=== PATIENT | female | born 1990 | race Caucasian/White ===

== ENCOUNTER → 2017-05-13 | Outpatient (CLI) | payer OTHER ==
[~2017-05-13] MED LIST: PRENTAB26 PO
[2017-05-13 16:30] LABS: URINE APPEARANCE CLEAR (CLEAR); URINE BILIRUBIN NEG (NEG); URINE COLOR YELLOW; URINE EPITHELIAL CELL AUTO >30 /lpf (0-5); URINE NITRITE NEG (NEG); URINE SPECIFIC GRAVITY 1.015 (1.000-1.030); UROBILINOGEN NEG (NEG)
[2017-05-13 16:31] LABS: MANUAL MICROSCOPIC REQUIRED? NO; REVIEW REQ? NO
== END | disposition home or self-care (01) ==
LOC: C.LABSPEC 15:49
PROVIDERS: ATTEND Nurse Practitioner Family
DX: Z34.81 Encounter for supervision of other normal pregnancy, first trimester (principal); Z3A.00 Weeks of gestation of pregnancy not specified

== ENCOUNTER → 2017-05-15 | Outpatient (CLI) | payer OTHER ==
[2017-05-15 14:42] LABS: BASO % 0.4 %; BASO ABS # 0.04 K/uL (0-0.2); COMPLETE YES; EOS % 1.1 %; HEMATOCRIT 39.6 % (37-47); IG% 0.2 %; LYMPH % 15.2 %; LYMPH ABS # 1.49 K/uL (1.2-3.4); MEAN CELL VOLUME 95.2 fL (80-100); MEAN CORPUSCULAR HEMOGLOBIN 32.2 pg (25-34); MEAN CORPUSCULAR HGB CONC 33.8 g/dl (32-36); MEAN PLATELET VOLUME 9.5 fL (7.4-10.4); MONO % 8.6 %; NEUT % 74.5 %; PLATELET COUNT 289 K/uL (130-400); RED BLOOD COUNT 4.16 M/uL (4.2-5.4); WHITE BLOOD COUNT 9.79 K/uL (4.8-10.8)
[2017-05-19 10:06] LABS: CHLAMYDIA TRACH RNA*** NOT DETECTED (NOT DETECTED); GC (NEIS GONORRHOEAE)RNA** NOT DETECTED (NOT DETECTED)
== END | disposition home or self-care (01) ==
LOC: C.LAB1850 12:46
PROVIDERS: ATTEND Obstetrics & Gynecology
DX: Z34.81 Encounter for supervision of other normal pregnancy, first trimester (principal); Z3A.00 Weeks of gestation of pregnancy not specified

== ENCOUNTER → 2017-05-15 | Outpatient (CLI) | payer OTHER | END | disposition home or self-care (01) | LOC: C.PAPS 16:46 | PROVIDERS: ATTEND Obstetrics & Gynecology | DX: Z34.81 Encounter for supervision of other normal pregnancy, first trimester (principal) ==

== ENCOUNTER → 2017-10-06 | Outpatient (CLI) | payer OTHER | END | disposition home or self-care (01) | LOC: C.LABSPEC 16:13 | PROVIDERS: ATTEND Obstetrics & Gynecology | DX: Z34.83 Encounter for supervision of other normal pregnancy, third trimester (principal) ==

== ENCOUNTER → 2017-10-06 | Outpatient (CLI) | payer OTHER ==
[2017-10-06 15:37] LABS: HEMATOCRIT 37.3 % (37-47); HEMOGLOBIN 12.5 g/dL (12.0-16.0)
== END | disposition home or self-care (01) ==
LOC: C.LAB1850 14:19
PROVIDERS: ATTEND Obstetrics & Gynecology
DX: Z34.83 Encounter for supervision of other normal pregnancy, third trimester (principal)

== ENCOUNTER 2018-01-04 15:42 | Inpatient (IN) | payer OTHER ==
[~2018-01-04] VITALS: Ht 177.8 cm; Wt 91.7 kg
[2018-01-04 16:00] VITALS: Ht 177.8 cm; Wt 91.7 kg
[2018-01-04] MEDS ORDERED: LACTATED RINGER'S 1000ML 1,000 ML IV PRN (16:25)
[2018-01-04] MEDS ORDERED: PENICILLIN G POTASSIUM IV 6 MU in DEXTROSE 5% 250ML 250 ML IV ONE (16:45)
[2018-01-04 16:49] LABS: HEMATOCRIT 36.4 % (37-47); HEMOGLOBIN 12.4 g/dL (12.0-16.0); MEAN CELL VOLUME 95.8 fL (80-100); MEAN CORPUSCULAR HEMOGLOBIN 32.6 pg (25-34); MEAN CORPUSCULAR HGB CONC 34.1 g/dl (32-36); PLATELET COUNT 204 K/uL (130-400); RED CELL DISTRIBUTION WIDTH CV 13.7 % (11.5-14.5); RED CELL DISTRIBUTION WIDTH SD 47.1 fL (36.4-46.3); WHITE BLOOD COUNT 11.16 K/uL (4.8-10.8)
[2018-01-04] MEDS: LACTATED RINGER'S 1000ML 1,000 ML IV SCH ×2 (16:56→23:25)
[2018-01-04] MEDS ORDERED: BUPIVACAINE 0.25% 30 ML VIAL ONE (20:43)
[2018-01-04] MEDS ORDERED: EpHEDrine SULFATE INJ 50 MG/ML AMP ONE (20:43)
[2018-01-04] MEDS ORDERED: FENTANYL 2MCG/ML ROPIV 1.25MG/ML 100ML BAG ONE (20:44)
[2018-01-04] MEDS ORDERED: FENTANYL CITRATE INJ 50 MCG/1 ML 2 ML VIAL ONE (20:44)
[2018-01-04] MEDS: PENICILLIN G POTASSIUM IV 3 MU in DEXTROSE 5% 100ML 100 ML IV PRN (20:56)
[2018-01-04] MEDS ORDERED: LACTATED RINGER'S 1000ML 500 ML IV PRN ×2 (21:46→22:01)
[2018-01-04] MEDS ORDERED: NALOXONE HCL INJ 1 MG in SODIUM CHLORIDE 0.9% 1000ML 1,000 ML IV PRN (21:46)
[2018-01-04] MEDS ORDERED: EpHEDrine SULFATE INJ 50 MG/ML AMP IV PRN (22:00)
[2018-01-04] MEDS ORDERED: ONDANSETRON INJ 2 MG/ML 2 ML VIAL IV PRN (22:00)
[2018-01-04] MEDS ORDERED: NALOXONE HCL INJ 0.4 MG/1 ML VIAL/CARP IV PRN (22:00)
[2018-01-04] MEDS ORDERED: FENTANYL 2MCG/ML ROPIV 1.25MG/ML 100ML BAG EPI PRN (22:00)
[2018-01-04] MEDS ORDERED: NALBUPHINE HCL INJ 10 MG/ML AMP IV PRN (22:00)
[2018-01-04] MEDS ORDERED: DiphenhydrAMINE HCL 50 MG/ML VIAL IV PRN (22:00)
[2018-01-04] MEDS ORDERED: OXYTOCIN 30 UNITS/500ML NSS IV PRN (22:15)
[2018-01-05] VITALS (7 sets, daily range): BP systolic 105–129; BP diastolic 68–86; PULSE 71–104; TEMP 36.4–36.9; O2SAT 98–99
[2018-01-05] MEDS: PENICILLIN G POTASSIUM IV 3 MU in DEXTROSE 5% 100ML 100 ML IV PRN (00:46)
[2018-01-05] MEDS ORDERED: DIPHTHERIA/TETANUS/PERTUSSIS 0.5 ML SYR/VIAL IM. ONE (01:30)
[2018-01-05] MEDS ORDERED: OXYTOCIN 30 UNITS/500ML NSS IV PRN (01:30)
[2018-01-05] MEDS ORDERED: ACETAMINOPHEN 325 MG TAB PO PRN (01:30)
[2018-01-05] MEDS ORDERED: HYDROCORTISONE ACETATE 25 MG SUPP PR PRN (01:30)
[2018-01-05] MEDS ORDERED: LANOLIN OINT EXT PRN (01:30)
[2018-01-05] MEDS ORDERED: BENZOCAINE 20% AER SPR 82.5 GM CAN EXT PRN (01:30)
[2018-01-05] MEDS ORDERED: SUPERCREAM 0.870 % 15GM JAR EXT PRN (01:30)
[2018-01-05] MEDS ORDERED: OXYCODONE/ACETAMINOPHEN 5-325 TAB PO PRN (01:30)
--- NOTE | 2018-01-05 01:54 | DELIVERY SUMMARY ---
DATE OF OPERATION: 01/05/2018 PREOPERATIVE DIAGNOSES: 1. Intrauterine at 41+ weeks. 2. Early active labor. 3. GBS positive status. POSTOPERATIVE DIAGNOSES: 1. Intrauterine at 41+ weeks. 2. Early active labor. 3. GBS positive status. PROCEDURES: 1. GBS prophylaxis. 2. Epidural. 3. Amniotomy. 4. Pitocin augmentation. 5. Normal spontaneous vaginal delivery. 6. Bilateral periurethral lacerations with repair. SURGEON: Amena Hope MD ANESTHESIA: Epidural. ESTIMATED BLOOD LOSS: 350 mL PROCEDURE IN DETAIL: The patient presented to labor and delivery at 5+ cm dilated. She was admitted. She underwent penicillin for prophylaxis. After receiving epidural and her second dose of penicillin, she was ruptured at 5 cm, 75% and Pitocin augmentation was initiated. She progressed to complete-complete and +1 station, pushed over approximately 3 contractions to deliver a viable female in direct occiput posterior presentation. A loose nuchal cord was reduced and the rest of the infant was then delivered without difficulty. The nose and mouth were bulb suctioned. The was placed on the maternal abdomen for drying and attention. At 1 minute of life, the cord was clamped and cut. Of note, there was a true knot in the cord. Whether this was there originally created by the reduction of the nuchal cord was unsure. Placenta delivered spontaneously intact with a 3-vessel cord. Cervix, sulci, and rectum as well as the perineum was examined and found to be intact. Bilateral periurethral lacerations were repaired with 4-0 Vicryl in interrupted sutures in a normal standard fashion. Hemostasis obtained with dilute Pitocin and fundal massage. Estimated blood loss 350 mL. Apgars 8 and 10. Mother and baby doing well at the end of the delivery. I attest to the content of the Intraoperative Record and any orders documented therein. Any exception s are noted below.
--- NOTE | 2018-01-05 06:38 | Discharge Instructions ---
Discharge Instructions Date of Service January 05, 2018. Admission Reason for Admission: Check Labor Discharge Discharge Diagnosis / Problem: Vaginal Delivery Discharge Goals Goal(s): Routine recovery after delivery Medications Continue Dispensed Medications: supercream, dermaplast, tucks, lansinoh Activity Recommendations Activity Limitations: per Instructions/Follow-up section . Instructions / Follow-Up Instructions / Follow-Up ACTIVITY RECOMMENDATIONS: * Gradual return to full activity over the next 2-3 weeks. * No lifting - nothing heavier than baby over the next 2-3 weeks. * Do not engage in vigorous exercise, sexual activity or sports until cleared by your physician. * Do not drive or operate any motorized equipment until cleared by your physician. * You may shower/bathe daily. MEDICATIONS: For discomfort or pain, you may use Acetaminophen (Tylenol), Ibuprofen (Advil), or Naproxen (Aleve) following the package directions. For constipation you may use Colace following the package directions. BREAST CARE: If you are not breast feeding: * Wear a supportive bra 24 hours a day for one to two weeks. * Avoid stimulating your breasts and nipples as much as possible during the first few weeks after delivery. * When taking a shower, have the warm water hit your back, not breasts. * When your breasts feel full, apply ice packs. Usually three to four times a day helps ease the discomfort. * Take a mild pain medication (Tylenol / Motrin) when you are uncomfortable. If breast feeding: * Use breast milk to lubricate nipples. Lansinoh cream may be used for sore nipples. You do not need to remove cream prior to breast feeding. If using a different brand of cream, check the label for directions regarding removal of cream prior to nursing. * Wear a supportive bra. * If having problems with breasts or breast feeding, call a application support consultant or your health care provider. EPISIOTOMY CARE: After delivery, if you have an episiotomy (stitches), the following steps will ease discomfort and aid healing. * For the first 24 hours after delivery, place ice packs next to your episiotomy to help reduce swelling. * After the first 24 hour-period, sitz baths, either portable or in the tub, are suggested. A shower with a shower arm sprayed over the episiotomy may be comforting. * Coral care should be done after each voiding and bowel movement. Squirt warm water from a plastic bottle over the perineum (region of the body between the anus and urinary opening) and pat dry. * Use Dermoplast to ease discomfort. Shake container. [place] directly over the episiotomy. Place a Tucks on a clean sanitary pad next to your episiotomy. SPECIAL CARE INSTRUCTIONS: When you are discharged from the hospital, it is important for you to follow the instructions listed below: * During the first week at home, you should be able to care for yourself and your baby. In addition, the usual light household activities are encouraged. * Limit your activities to the way you feel. Do not try to clean the house or move furniture. Be sensible. * If you actively engage in sports and have done so up until the time of your delivery, you may resume these activities as soon as you feel able. This may take up to one month or even longer. Use good judgment. * Continue to take your vitamins for at least six weeks after the of your baby. * Your diet need not be limited unless you were on a special diet before your delivery. Breast-feeding mothers need around 2500 calories per day and at least 64-80 ounces of fluid per day (8 to 10 glasses). * You should eat foods from the four major food groups. Crash diets or fad diets are to be avoided. Eating lean meats, fresh fruits and vegetables, low-fat dairy products, high fiber foods and a regular exercise program, will help you get back to your pre- weight without putting your health at risk. * Constipation is sometimes a problem after delivery. Take a mild laxative as needed. If breast feeding, Milk of Magnesia is acceptable to use. You may use a suppository or Fleets enema if no episiotomy. * A daily shower or tub bath is suggested. Be sure to thoroughly and gently dry the perineum. * A bloody vaginal discharge will usually continue until around four weeks post . A small amount of bleeding may continue for as long as six weeks. Vaginal discharge changes from the bright red bleeding after delivery to pink then brownish and finally yellowish-pink before becoming white and disappearing. * Bleeding may increase with activity. Your first period may come in 4-8 weeks. If you are breast feeding, your period may be delayed even longer. * Lyons Switch (sex) can begin whenever both you and your partner feel comfortable and do not have any form of genital infection. It is recommended that you wait at least six weeks for internal and external healing to occur. If you have questions, please talk to your health care practitioner. A condom should be used to prevent infection and . * Foreplay, gentle intercourse and lubrication is very important the first several times to prevent pain. A water-based lubricant such as K-Y jelly or Astroglide may be used. * If you have RH negative blood and your baby is RH positive, you will receive RHOGAM by injection prior to discharge. The nurse will give you a card to keep with you that has the date and place that you received RHOGAM after delivery. * During your care, you had a Rubella screen done to check for the presence of rubella antibodies in your blood. If your test was negative, you will receive a Rubella vaccine prior to discharge. This vaccine may cause a fever, soreness at the injection site and flu-like symptoms. If these symptoms persist, notify your health care practitioner. is not advised for one month after a Rubella vaccine. * Verbalizes understanding of car seat law as reviewed with patient nursing. * Car Seat hand-out given and reviewed with patient by nursing. * Shaken baby information reviewed with patient by nursing. Call you doctor if: * Heavy bleeding (saturating several pads an hour) or passing clots the size of your fist. * A fever >101 degrees F (38.3 degrees C) on two occasions four hours apart and /or chills. * Unusual pain in the pelvic or vaginal areas. * "Baby Blues" lasting longer than two weeks. If you have any questions or concerns, call your health care practitioner at . FOLLOW UP VISIT: * Please call the office at to schedule a 6 week examination. It is important you keep this appointment. It is important for you to make arrangements for either yearly or twice yearly check-ups thereafter. Current Hospital Diet Patient's current hospital diet: Regular OB Diet Discharge Diet Recommended Diet: Regular Diet Pending Studies Studies pending at discharge: no Medical Emergencies . Who to Call and When: Medical Emergencies: If at any time you feel your situation is an emergency, please call 911 immediately. . Non-Emergent Contact Non-Emergency issues call your: Primary Care Provider . . "Provider Documentation" section prepared by David Minaya. .
[2018-01-05] MEDS: IBUPROFEN 600 MG TAB PO PRN ×4 (07:50→20:02)
[2018-01-05] MEDS: DOCUSATE SODIUM 100 MG CAP PO SCH ×2 (07:51→20:02)
[2018-01-05] MEDS ORDERED: PRENATAL VITAMIN TAB PO SCH (08:00)
--- NOTE | 2018-01-05 08:38 | Anesthesia Procedure Note ---
Anesthesia Epidural Removal Nt Date & Time January 05, 2018 at 08:37 Vital Signs Pain Intensity: 4.0 Vital Signs Past 12 Hours Date Time Temp Pulse Resp B/P (MAP) Pulse Ox O2 Delivery O2 Flow Rate FiO2 01/05/18 07:00 36.9 92 14 105/68 (80) 01/05/18 04:00 36.4 72 18 129/76 (93) Room Air 01/05/18 04:00 Room Air Notes Mental Status: alert / awake / arousable, participated in evaluation Nausea / Vomiting: adequately controlled Pain: adequately controlled Airway Patency, RR, SpO2: stable & adequate BP & HR: stable & adequate Hydration State: stable & adequate Neuraxial Anesthesia: was administered, sensory block is resolving Anesthetic Complications: no major complications apparent, pt satisfied with anesthetic care Epidural: removed without complications, with tip intact
[2018-01-05] MEDS: PRENATAL VITAMIN TAB PO SCH (21:05)
[2018-01-06 06:21] LABS: HEMATOCRIT 34.7 % (37-47); HEMOGLOBIN 11.7 g/dL (12.0-16.0)
--- NOTE | 2018-01-06 06:42 | Progress Note ---
Subjective January 06, 2018. Subjective conversation w/ patient Ambulation: ambulating normally Voiding: no voiding problems Diet Tolerance: Regular Diet Lochia: Moderate Feeding Type: Breast Feeding Pain: Abdominal cramping with nursing Review of Systems Constitutional: No fever, No chills Respiratory: No shortness of breath Cardiac: No chest pain Abdomen: No nausea, No vomiting Objective Vital Signs Date Time Temp Pulse Resp B/P (MAP) Pulse Ox O2 Delivery O2 Flow Rate FiO2 01/05/18 23:50 36.7 76 16 119/81 (94) Room Air 01/05/18 23:50 Room Air 01/05/18 20:05 36.8 89 16 122/86 (98) Room Air 01/05/18 15:50 36.8 104 16 109/78 (88) 99 Room Air 01/05/18 15:50 99 Room Air 01/05/18 12:05 36.7 71 18 113/79 (90) 98 Room Air 01/05/18 12:00 36.7 91 20 111/76 (88) 01/05/18 07:15 Room Air 01/05/18 07:00 36.9 92 14 105/68 (80) Physical Exam General Appearance: WELL-APPEARING, WD/WN, NO APPARENT DISTRESS Respiratory/Chest: lungs clear, normal breath sounds Cardiovascular: regular rate, rhythm Abdomen: soft Fundus: Firm, Non-Tender, Relation to Umbilicus (1 below) Extremities: no pedal edema, no calf tenderness Laboratory Results Last 24 Hours Test 01/06/18 06:08 Hemoglobin 11.7 g/dL Hematocrit 34.7 % Assessment and Plan Post- Day#: 1 Continue Routine Care: 27F s/p NVD day 1 - A+, Rubella Immune, GBS +ve - pt doing well clinically - Vital signs reviewed - tachycardic yesterday to 104, but has downtrended since - Hemoglobin reviewed. 12.4 -> 11.7 - Encourage ambulation, monitor and control pain with Motrin PRN - Encourage breast feeding - Pt ready for d/c today and will be counselled on discharge instructions Resident Physician Supervision Note: I interviewed and examined the patient. Discussed with Dr. Hernandez and agree with findings and plan as documented in the note. Any exceptions or clarifications are listed here: [None] Documented By: Vito Ignacio Resident Tracking Resident Involvement: Resident Care Provided Care Provided: OB Delivery
[2018-01-06 07:24] VITALS: BP 122/81; PULSE 71; TEMP 36.5
[2018-01-06] MEDS: DOCUSATE SODIUM 100 MG CAP PO SCH (08:31)
[2018-01-06] MEDS: PRENATAL VITAMIN TAB PO SCH (08:31)
[2018-01-06] MEDS: IBUPROFEN 600 MG TAB PO PRN (08:33)
[2018-01-06 11:22] VITALS: BP 105/71; PULSE 81; TEMP 36.9
[2018-01-06 11:35] VITALS: BP_DIAS 71; PULSE 81; TEMP 36.9
== END 2018-01-06 13:13 | disposition home or self-care (01) | DRG 775 ==
LOC: C.OPB 15:42 → C.LD 15:42 → C.OPB 16:28 → C.OBG 01-05 04:04
PROVIDERS: ADMIT Obstetrics & Gynecology; ATTEND Obstetrics & Gynecology
PROC: 0JQB0ZZ Repair Perineum Subcutaneous Tissue and Fascia, Open Approach (ICD-10-PCS; principal; 2018-01-05)
PROC: 10E0XZZ Delivery of Products of Conception, External Approach (ICD-10-PCS; principal; 2018-01-05)
DX: O71.82 Other specified trauma to perineum and vulva (principal); Z3A.41 41 weeks gestation of pregnancy; Z37.0 Single live birth; O99.824 Streptococcus B carrier state complicating childbirth

== ENCOUNTER 2021-12-13 08:15 | Inpatient (IN) ==
[2021-12-13] MEDS ORDERED: OXYTOCIN 30 UNITS/500 ML BAG IV PRN (21:45)
--- NOTE | 2021-12-13 21:48 | History & Physical Report ---
Date of Service December 13, 2021 Assessment & Plan (1) Encounter for supervision of normal in multigravida: Plan: Patient is here for induction she was post to be induced in the morning and she was supposed to have a cervical Caro last night however labor and delivery unit has been very busy and we did not have availability at that time patient is now brought in this evening around 10 PM I assessed her cervix was 1 cm I attempted to place a cervical Caro but the bulb would not stay in the cervix and fell out after 2 attempts with this I rechecked her I felt she was closer to 1 to 2 cm and we will try Cytotec at this time penicillin will be used for GBS baby is in vertex position she had COVID within 90 days has not been testing today Admission and Anticipated Discharge Date Admission Date: December 13, 2021 History of Present Illness Primary Care Provider: Frieda Jeter PA-C Visit JEOVANY Calculator Estimated Delivery Date Method Current WG Current Estimate 12/07/21 Ultrasound #1 40w 5d Other Estimates 12/02/21 LMP (Certain) 41w 3d LMP: 02/25/21 : 3 Full term: 2 Premature: 0 Total Number of Induced Abortions: 0 Total Number of Spontaneous Abortions: 0 Ectopics: 0 Multiple births: 0 Number of Living Children: 2 and Delivery Plans COVID + home test on 09/20/21 (s/s started on 09/19/21) GBS Positive *treat in LD Flu shot given 06/20/21 - [place] covid vaccine x 2 Allergies Allergy/AdvReac Type Severity Reaction Status Date / Time lanolin Allergy Mild Rash Verified 12/12/21 08:40 nickel Allergy Mild Rash Verified 12/12/21 08:40 Sulfa (Sulfonamide Allergy Mild GI SYMPTOMS Verified 12/12/21 08:40 Antibiotics) Home Medications Medication Instructions Recorded Confirmed Type diphenhydramine HCl [Unisom 1 tab PO HS 04/16/21 12/13/21 History (diphenhydramine)] prenat.vits,jg,yuo-dpxy-dabvw 1 tab PO DAILY 04/16/21 12/13/21 History breast pump #1 ea 08/15/21 12/12/21 Rx Patient History Medical History Anxiety Encounter for annual routine gynecological examination Encounter for IUD removal Ganglion, right wrist Insomnia Irregular intermenstrual bleeding Varicella vaccination Surgical History History of hand surgery History of oral surgery Family History Mother Thyroid disorder Father Stroke Denies family history of Colon cancer Ovarian cancer Prostate cancer Myocardial infarction Breast cancer Social History Smoking Status: Never smoker Second Hand Exposure: No; Hx Alcohol Use: Yes Hx Substance Use: No Preferred Language: Danish Communication Ability: Effective Visual Impairment: No Limitations Hearing Ability: Normal Waist Cutter Required: No Beliefs That Will Affect Care: None marital status: marital status details: Martinez (33) [phone] Current Living Situation: Family Current Living Situation Comment: Lives with family. 1 dog and 1 cat. 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
[2021-12-13] MEDS ORDERED: miSOPROStoL 25 MCG TAB PV ONE (21:49)
[2021-12-13] MEDS ORDERED: PENICILLIN G POTASSIUM 6 MU in DEXTROSE 5% 250 ML IV ONE (22:00)
[2021-12-13 22:50] LABS: Hematocrit (blood only) 36.5 % (37-47); Hemoglobin 12.3 g/dL (12.0-16.0); Mean Corpuscular Hemoglobin 32.7 pg (25-34); Mean Corpuscular Hgb Conc 33.7 g/dL (32-36); Mean Corpuscular Volume 97.1 fL (80-100); Mean Platelet Volume 10.5 fL (7.4-10.4); Platelet Count 280 K/uL (130-400); RDW Coefficient of Variation 14.2 % (11.5-14.5); RDW Standard Deviation 50.3 fL (36.4-46.3); Red Blood Count 3.76 M/uL (4.2-5.4); White Blood Count 11.73 K/uL (4.8-10.8)
[2021-12-14] MEDS ORDERED: OXYTOCIN 30 UNITS/500 ML BAG IV PRN ×2 (06:44→18:46)
[2021-12-14] MEDS ORDERED: ACETAMINOPHEN 325 MG TAB PO PRN ×2 (07:24→18:46)
[2021-12-14] MEDS: LACTATED RINGER'S 1,000 ML IV PRN ×3 (07:41→15:37)
[2021-12-14] MEDS ORDERED: BUPIVACAINE 0.25% 30 ML VIAL ONE (11:10)
[2021-12-14] MEDS ORDERED: SODIUM CHLORIDE 0.9% INJ 10 ML VIAL ONE (11:10)
[2021-12-14] MEDS ORDERED: ePHEDrine sulfate 50 MG/ML AMP ONE (11:10)
[2021-12-14] MEDS ORDERED: fentaNYL citrate 100 MCG/2 ML VIAL ONE (11:10)
[2021-12-14] MEDS ORDERED: fentaNYL 2MCG/ML ROPIVACAINE 1.25MG/ML 100 ML BAG EPI ONE (11:11)
[2021-12-14] MEDS: PENICILLIN G POTASSIUM 3 MU in DEXTROSE 5% 100 ML IV PRN ×2 (11:13→17:23)
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
[2021-12-14] MEDS ORDERED: fentaNYL 2MCG/ML ROPIVACAINE 1.25MG/ML 100 ML BAG EPI PRN (12:44)
[2021-12-14] MEDS ORDERED: NALOXONE HCL 0.4 MG/1 ML VIAL/CARP IV PRN (12:44)
[2021-12-14] MEDS ORDERED: ePHEDrine sulfate 50 MG/ML AMP IV PRN (12:44)
[2021-12-14] MEDS ORDERED: ONDANSETRON INJ 2 MG/ML 2 ML VIAL IV PRN (12:44)
[2021-12-14] MEDS ORDERED: diphenhydrAMINE 50 MG/ML VIAL IV PRN (12:44)
[2021-12-14] MEDS ORDERED: NALBUPHINE HCL INJ 10 MG/ML AMP IV PRN (12:44)
[2021-12-14] MEDS ORDERED: NALOXONE HCL 1 MG in SODIUM CHLORIDE 0.9% 1000ML 1,000 ML IV PRN (12:44)
[2021-12-14] MEDS ORDERED: oxyCODONE/ACETAMINOPHEN 5mg/325mg TAB PO PRN (18:46)
[2021-12-14] MEDS ORDERED: HYDROCORTISONE ACETATE 25 MG SUPP PR PRN (18:46)
[2021-12-14] MEDS ORDERED: bisacodyL 10 MG SUPP PR PRN (18:46)
[2021-12-14] MEDS ORDERED: BENZOCAINE 20% AER SPR 82.5 GM CAN EXT PRN (18:46)
[2021-12-14] MEDS ORDERED: DIPHTHERIA/TETANUS/PERTUSSIS 0.5 ML SYR/VIAL IM ONE (18:46)
--- NOTE | 2021-12-14 18:52 | Delivery Summary ---
Vaginal Delivery Summary Date of Service December 14, 2021 Vaginal Delivery Summary and 1st Degree LAC (clitoral) Patient is a 31-year-old 3 para 2-0-0-2 female EDC of 12/07/2021 who presents for postterm induction of labor. She received Cytotec initially for ripening of her cervix when the cervical balloon would not stay in place. Pitocin augmentation was begun in the morning of 12/14/2021. She received effective epidural analgesia. She progressed to full dilation with the urge to push. She pushed effectively through 1 contraction to deliver the head. There was a double nuchal cord which was tight. This was clamped and cut prior to delivering the rest of the infant. The rest the infant delivered easily and was vigorous. There was arterial bleeding from the clitoris and this was secured with 2 [id number]-[id number] stitches of 3-0 chromic. Hemostasis was noted to be excellent at this point. The rest of the perineum was intact. The placenta was expressed intact with a three-vessel cord. Cord blood was obtained prior to delivering the placenta. bleeding was controlled with dilute Pitocin and fundal massage. Estimated blood loss was 300 cc. Mother and were doing well after delivery. [facility] Vaginal Delivery Charge Delivery Type Details: and 1st Degree LAC (clitoral)
--- NOTE | 2021-12-14 19:16 | Anesthesia Procedure Note ---
Date of Service December 14, 2021 Anesthesia Post Epidural Note Vital Signs Vital Signs: Temp Pulse Resp BP Pulse Ox 36.8 C 72 18 124/68 83 L 12/14/21 12:36 12/14/21 19:00 12/14/21 14:45 12/14/21 19:00 12/14/21 18:14 Notes Mental Status: alert / awake / arousable and participated in evaluation Nausea / Vomiting: adequately controlled Pain: adequately controlled Airway Patency, RR, SpO2: stable & adequate BP & HR: stable & adequate Hydration State: stable & adequate Neuraxial Anesthesia: was administered and sensory block is resolving Anesthetic Complications: no major complications apparent and Pt Satisfied with anesthetic care Epidural: Removed without complications and With tip intact Notes: Epidural site clean, dry and intact. No signs of edema, erythema or bruising at insertion site. Pt instructed to request anesthesia if she has residual lower extremity numbness or if she develops lower extremity pain or weakness, back pain or headache.
[2021-12-14] MEDS: DOCUSATE SODIUM 100 MG CAP PO SCH (21:34)
[2021-12-14] MEDS: IBUPROFEN 600 MG TAB PO PRN (21:34)
--- NOTE | 2021-12-15 06:35 | Obstetrical Progress Note ---
Date of Service <Laine Joel - Last Filed: 12/15/21 07:43> December 15, 2021 Assessment & Plan <Laine Joel - Last Filed: 12/15/21 07:43> (1) Encounter for care and examination after delivery: (2) Group beta Strep positive: 31 yo post op day1 from , doing well. -Continue routine post care. -vital signs reviewed and WNL (Tmax 36.9) -Blood Type A+, GBS+ received penicillin, Rubella immune -Encourage ambulation, monitor and control pain with Motrin, tylenol PRN, resume regular diet, monitor lochia -encourage breast feeding -hemoglobin 12.3 Day #:: 1 <Sarita Hoskins MD, FACOG - Last Filed: 12/15/21 11:15> (1) Encounter for care and examination after delivery: (2) Group beta Strep positive: Subjective <Laine WisamDO - Last Filed: 12/15/21 07:43> Ambulation: ambulating normally Voiding: no voiding problems Passing Gas:: Yes Diet Tolerance:: regular diet Lochia:: Small Feeding Type:: breast feeding Current Pain Level(1-10): 0 Review of Systems Denies fever, chills, sweats Denies shortness of breath, difficulty breathing, chest pain, palpitations, chest pressure. Denies breast pain. Denies dysuria. Denies headache or changes in vision. Physical Exam <Laine Joel - Last Filed: 12/15/21 07:43> General: Alert, oriented. No acute distress. Cardiac: Regular rate and rhythm, no murmurs/rubs/gallops. Respiratory: Clear to auscultation bilaterally a/p, no wheezes/rales/rhonchi. No increased work of breathing. Symmetrical chest rise. No respiratory distress. Abdomen: Soft, nontender, nondistended. Bowel sounds present. Uterus: Uterine fundus firm, palpable at umbilicus. Lower Extremities: No lower extremity edema or swelling. No deep calf pain. Ezequiel's negative bilaterally.. Results & Data ([facility]) <Laine WisamDO - Last Filed: 12/15/21 07:43> Vital Signs (Past 12 Hours) Vital Signs Temp Pulse Pulse Resp BP BP Pulse Ox 12/15/21 03:42 36.9 C 71 16 98/66 L 99 12/14/21 23:30 36.7 C 82 16 138/96 96 12/14/21 21:30 36.9 C 80 18 112/77 98 12/14/21 19:44 73 133/76 12/14/21 19:30 74 131/70 12/14/21 19:15 74 141/75 H 12/14/21 19:00 72 124/68 <Sarita Hoskins MD, FACOG - Last Filed: 12/15/21 11:15> Co-Signing Physician Notes Resident Physician Supervision Note: I interviewed and examined the patient. Discussed with Dr. Joel and agree with findings and plan as documented in the note. Any exceptions or clarifications are listed here: [None] Documented By: Sarita Hoskins MD, FACOG Resident Activity Tracking <Laine Joel DO - Last Filed: 12/15/21 07:43> Resident Involvement: Resident Care Provided Care Provided: Adult Hospital Medicine and OB Delivery
[2021-12-15 06:36] LABS: Hematocrit (blood only) 32.8 % (37-47); Hemoglobin 10.8 g/dL (12.0-16.0); Mean Corpuscular Hemoglobin 32.5 pg (25-34); Mean Corpuscular Hgb Conc 32.9 g/dL (32-36); Mean Corpuscular Volume 98.8 fL (80-100); Mean Platelet Volume 10.3 fL (7.4-10.4); Platelet Count 238 K/uL (130-400); RDW Coefficient of Variation 14.1 % (11.5-14.5); RDW Standard Deviation 50.3 fL (36.4-46.3); Red Blood Count 3.32 M/uL (4.2-5.4); White Blood Count 9.09 K/uL (4.8-10.8)
[2021-12-15] MEDS ORDERED: PRENATAL VITAMIN 1 TAB PO SCH (08:00)
[2021-12-15] MEDS: DOCUSATE SODIUM 100 MG CAP PO SCH (08:38)
[2021-12-15] MEDS: IBUPROFEN 600 MG TAB PO PRN ×3 (08:38→16:46)
[2021-12-15] MEDS ORDERED: SERTRALINE HCL 50 MG TABLET PO SCH (09:00)
[2021-12-15] MEDS ORDERED: bisacodyL 5 MG TABEC PO SCH (20:00)
== END 2021-12-15 19:24 | disposition home or self-care (01) | DRG 807 ==
LOC: 4S1 20:46 → 4E2 12-14 21:27